=== PATIENT | female | born 1980 | race African-American/Black ===

== ENCOUNTER 2016-02-29 16:53 | Emergency (ER) | payer BC ==
[2016-02-29] MEDS ORDERED: Acetaminophen TAB* 325 MG PO ONE ×2 (17:36→20:45)
[2016-02-29] MEDS ORDERED: NS 0.9% 1000 ML* 2,000 ML IV ONE (17:36)
[2016-02-29] MEDS ORDERED: Ketorolac INJ* 30 MG/ML 1 ML VIAL IV ONE (17:39)
[2016-02-29] MEDS ORDERED: Ondansetron INJ* 2 MG/ML VIAL IV ONE (17:39)
--- NOTE | 2016-02-29 18:02 | ED ---
Influenza-Like Illness - HPI Summary HPI Summary: Patient presents with cough, body aches, nausea and KEN for two days. She developed a fever yesterday that she treated with Tylenol with relief, but has not taken anything today. Her youngest daughter was sick last week with the same symptoms. She has not consumed many fluids or food. No diarrhea, constipation, abdominal, neck or back pain. She denies sore throat or ear pain. - History of Current Complaint Chief Complaint: EDFever Time Seen by Provider: 02/29/16 17:29 Hx Obtained From: Patient Onset/Duration: Gradual Onset Severity: Severe Associated Signs & Symptoms: Fever, T Max - 103.9, Myalgia, Cough, Headache, Vomiting Related Hx: Possible Flu/Infectious Exposure - Daughter - Allergy/Home Medications Allergies/Adverse Reactions: Allergies Allergy/AdvReac Type Severity Reaction Status Date / Time No Known Allergies Allergy Verified 02/29/16 16:59 PMH/Surg Hx/FS Hx/Imm Hx Endocrine/Hematology History: Denies: Hx Diabetes Cardiovascular History: Denies: Hx Congestive Heart Failure, Hx Hypertension History: Reports: Other Problems/Disorders - ovarian cysts Denies: Hx Renal Disease Psychiatric History: Reports: Hx of Violent Episodes Against Others Denies: Hx Eating Disorder - Surgical History Surgery Procedure, Year, and Place: 2 c-sections Infectious Disease History: No Infectious Disease History: Denies: Traveled Outside the [place] in Last 30 Days - Family History Known Family History: Positive: None, Hypertension, Diabetes Negative: Cardiac Disease Family History: R & n/C - Social History Occupation: Employed Full-time Lives: With Family Alcohol Use: Rare Hx Substance Use: No Substance Use Type: Reports: None Hx Tobacco Use: Yes Smoking Status (MU): Light Every Day Tobacco Smoker Cessation Counseling: Patient Advised to Stop Review of Systems Positive: Fever, Chills, Fatigue Negative: Sore Throat, Ear Ache Negative: Chest Pain Positive: Cough. Negative: Shortness Of Breath Positive: Vomiting, Nausea. Negative: Abdominal Pain, Diarrhea Positive: no symptoms reported Positive: Myalgia Positive: Headache. Negative: Weakness, Paresthesia, Numbness All Other Systems Reviewed And Are Negative: Yes Physical Exam Triage Information Reviewed: Yes Vital Signs On Initial Exam: Initial Vitals Temp Pulse Resp BP Pulse Ox 103.9 F 125 18 135/68 97 02/29/16 16:59 02/29/16 16:59 01/16/17 16:59 02/29/16 16:59 02/29/16 16:59 Vital Signs Reviewed: Yes Appearance: Positive: Well-Nourished, Ill-Appearing - patient appears lethargic but alert, Pain Distress Skin: Positive: Warm, Skin Color Reflects Adequate Perfusion, Dry, Soft Head/Face: Positive: Normal Head/Face Inspection Eyes: Positive: EOMI, [place], Conjunctiva Clear ENT: Positive: Hearing grossly normal, Pharynx normal, TMs normal Neck: Positive: Supple, Nontender, No Lymphadenopathy Respiratory/Lung Sounds: Positive: Clear to Auscultation, Breath Sounds Present Cardiovascular: Positive: Tachycardia Abdomen Description: Positive: Nontender, Soft Bowel Sounds: Positive: Present Musculoskeletal: Negative: Edema Left Neurological: Positive: Sensory/Motor Intact, Alert, Oriented to Person Place, Time, NV Bundle Intact Distally Psychiatric: Positive: Affect/Mood Appropriate AVPU Assessment: Alert Diagnostics - Vital Signs Vital Signs Temp Pulse Resp BP Pulse Ox 02/29/16 16:59 103.9 F 125 18 135/68 97 - Laboratory Result Diagrams: 02/29/16 17:40 02/29/16 17:40 Lab Statement: Any lab studies that have been ordered have been reviewed, and results considered in the medical decision making process. Re-Evaluation - Re-Evaluation First Eval Re-Evaluation Time: 19:00 Change: Improved - Patient feels a little better and is asking for water. Flu Symptom Course/Dx - Diagnoses Differential Diagnosis/HQI/PQRI: Positive: Bronchitis, Influenza, Pneumonia, RSV , Upper Respiratory Infection Provider Diagnoses: Viral syndrome Discharge - Discharge Plan Condition: Stable Disposition: HOME Prescriptions: Acetaminophen TAB* [Tylenol TAB*] 650 mg PO Q4H PRN #60 tab PRN Reason: Fever Ondansetron ODT TAB* [Zofran Odt TAB*] 4 mg PO Q6H PRN #20 tab.odt PRN Reason: Nausea Patient Education Materials: Viral Syndrome (ED) Referrals: [facility] [Outside] Additional Instructions: Please call the number provided to establish care with a regular provider for follow-up care. Drink extra fluids, and get plenty of rest. Set an alarm to take 650mg of acetaminophen every 4 hours to keep your fever under control. You can add 600mg of ibuprofen tomorrow evening, every 6 hours to help with body aches. Return to the emergency department if your symptoms worsen.
[2016-02-29 18:04] LABS: Hematocrit 40 % (35-47); Hemoglobin 12.9 g/dl (12.0-16.0); Mean Corpuscular HGB Conc 32 g/dl (31-36); Mean Corpuscular Hemoglobin 25 pg (27-31); Mean Corpuscular Volume 78 fL (80-97); Mean Platelet Volume 8 um3 (7.4-10.4); Red Cell Distribution Width 14 % (10.5-15); White Blood Count 7.7 10^3/ul (3.5-10.8)
[2016-02-29] MEDS ORDERED: Acetaminophen TAB* 325 MG ONE (18:14)
[2016-02-29 18:20] LABS: Albumin 4.5 g/dL (3.2-5.2); BUN/Creatinine Ratio 11.7 (8-20); Calcium 9.6 mg/dL (8.6-10.3); EGFR African American 88.2 (>60); EGFR Non-African American 68.6 (>60); Globulin 4.1 g/dL (2-4); Total Bilirubin 0.4 mg/dL (0.2-1.0); Total Protein 8.6 g/dL (6.4-8.9)
[2016-02-29 18:59] VITALS: BP 124/54
[2016-02-29 19:04] LABS: Potassium 3.8 mmol/L (3.5-5.0)
[2016-02-29] MEDS ORDERED: Ondansetron ODT TAB* 4 MG PO ONE (20:46)
== END 2016-02-29 21:43 | disposition home or self-care (01) ==
LOC: ED 16:53
DX: B34.9 Viral infection, unspecified (principal); R05 Cough; R51 Headache; R11.0 Nausea; R50.9 Fever, unspecified; F17.210 Nicotine dependence, cigarettes, uncomplicated
CPT/HCPCS: 36415; 80053; 83605; 85025; 86140; 86703; 87502; 96361; 96374; 96375; 99282; A9270-GY; J1885; J2405

== ENCOUNTER → 2016-10-02 08:28 | Emergency (ER) | payer BC ==
--- NOTE | 2016-10-02 09:30 | ED ---
Psychiatric Complaint - HPI Summary HPI Summary: Patient presents to the ED with increased stress levels at home which are contributing to her depression. She denies any SI/HI. Denies ETOH, drug abuse. She is otherwise healthy and takes no medications. She has been seen here previously, and was given trazodone for her symptoms. She has not taken them, feeling they have not been helping her. Last visit for [facility] was 2012. She denies any counseling and did not seek therapy after last visit. Home stress has increased in the past few weeks and she c/o the difficulties surrounding trying to care of her children and working, etc. She denies any health problems and denies allergies. - History Of Current Complaint Chief Complaint: EDMentalHealth Time Seen by Provider: 10/02/16 08:40 Hx Obtained From: Patient ?: No Onset/Duration: Gradual Onset Timing: Constant Severity Initially: Moderate Severity Currently: Moderate Character: Depressed, Anxious, Frustrated Aggravating Factor(s): Recent Stress Alleviating Factor(s): Nothing Associated Signs And Symptoms: Positive: Negative - Risk Factor(s) Completed Suicide Risk Factors: Negative - Allergies/Home Medications Allergies/Adverse Reactions: Allergies Allergy/AdvReac Type Severity Reaction Status Date / Time No Known Allergies Allergy Verified 02/29/16 16:59 PMH/Surg Hx/FS Hx/Imm Hx Previously Healthy: Yes Endocrine/Hematology History: Denies: Hx Diabetes Cardiovascular History: Denies: Hx Congestive Heart Failure, Hx Hypertension History: Reports: Other Problems/Disorders - ovarian cysts Denies: Hx Renal Disease Psychiatric History: Reports: Hx of Violent Episodes Against Others Denies: Hx Eating Disorder - Surgical History Surgery Procedure, Year, and Place: 2 c-sections - Immunization History Hx Pertussis Vaccination: No Immunizations Up to Date: Unable to Obtain/Confirm Infectious Disease History: Denies: Traveled Outside the [place] in Last 30 Days - Family History Known Family History: Positive: None, Hypertension, Diabetes Negative: Cardiac Disease Family History: R & n/C - Social History Occupation: Employed Full-time Lives: With Family Alcohol Use: Rare Hx Substance Use: No Substance Use Type: Reports: None Hx Tobacco Use: Yes Smoking Status (MU): Light Every Day Tobacco Smoker Review of Systems Constitutional: Negative Eyes: Negative Cardiovascular: Negative Respiratory: Negative Gastrointestinal: Negative Positive: no symptoms reported, see HPI Musculoskeletal: Negative Neurological: Negative Positive: Anxious, Depressed All Other Systems Reviewed And Are Negative: Yes Physical Exam Triage Information Reviewed: Yes Vital Signs On Initial Exam: Initial Vitals Temp Pulse Resp BP Pulse Ox 98.5 F 80 16 121/82 99 10/02/16 08:29 10/02/16 08:29 10/02/16 08:29 10/02/16 08:29 10/02/16 08:29 Vital Signs Reviewed: Yes Appearance: Positive: Well-Appearing, Well-Nourished Skin: Positive: Warm, Skin Color Reflects Adequate Perfusion Head/Face: Positive: Normal Head/Face Inspection Eyes: Positive: EOMI, [place], Conjunctiva Clear Neck: Positive: Supple, No Lymphadenopathy Respiratory/Lung Sounds: Positive: Clear to Auscultation, Breath Sounds Present Cardiovascular: Positive: Normal, RRR, Pulses are Symmetrical in both Upper and Lower Extremities Musculoskeletal: Positive: Strength/ROM Intact Neurological: Positive: Normal, Sensory/Motor Intact, Alert, Oriented to Person Place, Time Psychiatric: Positive: Anxious, Depressed Diagnostics - Vital Signs Vital Signs Temp Pulse Resp BP Pulse Ox 10/02/16 08:29 98.5 F 80 16 121/82 99 - Laboratory Result Diagrams: 10/02/16 09:38 10/02/16 09:38 Lab Statement: Any lab studies that have been ordered have been reviewed, and results considered in the medical decision making process. Course/Dx - Course Course Of Treatment: Patient was evaluated for suicide and homicide risks. Drug and ETOH information obtained. Medications were reviewed. Patient appears stable and is wanting a [facility]. She is currently cleared. [facility] states patient is able to be discharged and has follow up with outpatient therapy. Hydroxyzine given 25mg up to four times daily as needed for any symptoms of anxiety. Medications reviewed and patient is OK with discharge. - Differential Dx/Clinical Impression Differential Diagnosis/HQI/PQRI: Positive: Anxiety, Depression, Other - acute stress Provider Diagnosis: Stress disorder, acute Discharge - Discharge Plan Condition: Stable Disposition: HOME Prescriptions: hydrOXYzine HCL TAB* [Atarax 25 MG TAB*] 25 mg PO QID PRN #12 tab MDD 4 PRN Reason: Anxiety Referrals: [facility] [Outside] - As Soon As Possible (Please go to [facility] either Monday, Monday, Monday or Monday between 8am to 2pm to have an intake appointment completed to establish yourself with a therapist.) No Primary Care Phys,NOPCP [Primary Care Provider] -
[2016-10-02 09:47] LABS: Hematocrit 38 % (35-47); Hemoglobin 12.1 g/dl (12.0-16.0); Mean Corpuscular HGB Conc 32 g/dl (31-36); Mean Corpuscular Hemoglobin 24 pg (27-31); Mean Corpuscular Volume 74 fL (80-97); Mean Platelet Volume 9 um3 (7.4-10.4); Red Blood Count 5.11 10^6/ul (4.0-5.4); Red Cell Distribution Width 15 % (10.5-15); White Blood Count 8.8 10^3/ul (3.5-10.8)
[2016-10-02 09:57] LABS: Add Diff/Slide Review? Slide Review Added; Comments Flag Yes
[2016-10-02 09:57] LABS: Benzodiazepine Urine Screen None Detected (None Detect)
[2016-10-02 09:58] LABS: ALT 15 U/L (7-52); AST 18 U/L (13-39); Alkaline Phosphatase 85 U/L (34-104); Anion Gap 3 mmol/L (2-11); BUN/Creatinine Ratio 23.8 (8-20); Blood Urea Nitrogen 15 mg/dL (6-24); CO2 Carbon Dioxide 26 mmol/L (22-32); Calcium 9.3 mg/dL (8.6-10.3); Chloride 109 mmol/L (101-111); EGFR African American 139.1 (>60); EGFR Non-African American 108.2 (>60); Globulin 3.5 g/dL (2-4); Glucose 100 mg/dL (70-100); Potassium 3.7 mmol/L (3.5-5.0); Sodium 138 mmol/L (133-145); Total Protein 7.5 g/dL (6.4-8.9)
[2016-10-02 10:09] LABS: Urine Bacteria Absent (Absent); Urine Bilirubin Negative (Negative); Urine Glucose Negative (Negative); Urine Nitrite Negative (Negative)
[2016-10-02 10:44] LABS: Acetaminophen < 15 mcg/mL; Alcohol < 10 mg/dL (<10); Salicylate < 2.50 mg/dL (<30)
[2016-10-02 10:54] LABS: TSH (Thyroid Stimulating Horm) 0.04 mcIU/mL (0.34-5.60)
[2016-10-02 14:21] VITALS: BP 154/98
== END | disposition home or self-care (01) ==
LOC: ED 08:28
DX: F43.9 Reaction to severe stress, unspecified (principal); F17.210 Nicotine dependence, cigarettes, uncomplicated
CPT/HCPCS: 36415; 80053; 80307; 80320; 80329; 81003; 81015; 84443; 85025; 87086; 99283; G0480